=== PATIENT | male | born 1990 | race Caucasian/White ===

== ENCOUNTER 2018-04-15 14:05 | Emergency (ER) | payer OTHER ==
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
[2018-04-15] MEDS ORDERED: KETAMINE 200 MG/20 ML VIAL ONE (14:55)
[2018-04-15] MEDS ORDERED: PROPOFOL 200 MG/20 ML VIAL ONE (14:55)
[2018-04-15] MEDS ORDERED: KETAMINE 500 MG/10 ML VIAL IVP ONE (15:19)
[2018-04-15] MEDS ORDERED: PROPOFOL 200 MG/20 ML VIAL IVP ONE (15:20)
[2018-04-15 16:08] VITALS: BP 120/81
== END 2018-04-15 16:06 | disposition home or self-care (01) ==
PROC: 0RSKXZZ Reposition Left Shoulder Joint, External Approach (ICD-10-PCS; principal; 2018-04-15)
DX: S43.022A Posterior subluxation of left humerus, initial encounter (principal); S50.812A Abrasion of left forearm, initial encounter; V19.9XXA Pedal cyclist (driver) (passenger) injured in unspecified traffic accident, initial encounter; Y93.55 Activity, bike riding
CPT/HCPCS: 96374; A4565; J2704

== ENCOUNTER → 2019-02-12 | Outpatient (CLI) | payer OTHER | LOC: FIMAGING 09:17 ==